=== PATIENT | male | born 1950 | race Caucasian/White ===

== ENCOUNTER 2023-06-25 08:28 | Emergency (ER) | payer MEDICARE, SELFPAY ==
[2023-06-25 08:49] VITALS: BP 138/73; PULSE 74; RESP 16; TEMP 36.3; O2SAT 99
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
== END 2023-06-25 09:39 | disposition home or self-care (01) ==
PROVIDERS: Emergency Provider Nurse Practitioner
DX: T24.301A Burn of third degree of unspecified site of right lower limb, except ankle and foot, initial encounter (principal); X03.8XXA Other exposure to controlled fire, not in building or structure, initial encounter; E78.00 Pure hypercholesterolemia, unspecified; N40.0 Benign prostatic hyperplasia without lower urinary tract symptoms; Z96.653 Presence of artificial knee joint, bilateral
CPT/HCPCS: 99213; A9270; G0463